=== PATIENT | male | born 1985 | race Caucasian/White ===

== ENCOUNTER 2017-10-24 09:51 | Emergency (ER) | payer OTHER ==
[2017-10-24] MEDS ORDERED: diphenhydrAMINE 50 MG/ML VIAL ONE (11:12)
[2017-10-24 11:13] LABS: #Eosinphils 0.1 thou/uL (0.0-0.7); #Monocytes 0.5 thou/uL (0.11-0.59); #Neutrophils 3.1 thou/uL (1.40-6.50); %Basophils 0.7 % (0.0-1.0); %Eosinophils 1.2 % (0.0-10.0); %Lymphocytes 35.2 % (21.0-51.0); %Monocytes 8.6 % (0.0-10.0); Hematocrit 46.2 % (42.0-52.0); Red Blood Cell (RBC) Count 4.92 mill/uL (4.70-6.10); White Blood Cell (WBC) Count 5.7 thou/uL (4.8-10.8)
[2017-10-24 11:34] LABS: ALT (SGPT) 24 U/L (8-55); AST (SGOT) 22 U/L (5-34); Alkaline Phosphatase 73 U/L (40-150); Anion Gap 12 mmol/L (10-20); BUN (Urea Nitrogen) 13 mg/dL (8.9-20.6); Bilirubin, Total 0.2 mg/dL (0.2-1.2); Calc. Creatinine Clearance 0 mL/min (70-130); Calcium 9.8 mg/dL (7.8-10.44); Carbon Dioxide 25 mmol/L (22-29); Chloride 103 mmol/L (98-107); Estimated GFR-MDRD Greater than 90; Globulin 3.4 g/dL (2.4-3.5); Protein, Total 7.9 g/dL (6.0-8.3)
--- NOTE | 2017-10-24 11:34 | RAD ---
PORTABLE UPRIGHT FRONTAL CHEST RADIOGRAPH: Date: 10/24/17 COMPARISON: 04/18/17. HISTORY: Syncope, trauma. FINDINGS: The lungs are clear. Heart and mediastinal contour unremarkable. Osseous structures are grossly unrem arkable. There is right lateral thoracic spine osteophyte formation. IMPRESSION: No acute findings. POS: [facility]
--- NOTE | 2017-10-24 11:51 | CT ---
BRAIN CT WITHOUT IV CONTRAST: HISTORY: A 32-year-old male with a syncopal episode. Headache. History of schizophrenia, hypertension, and t remors. COMPARISON: 04/18/2017 FINDINGS: There is no focal mass or midline shift. No intraaxial or extraaxial hemorrhage. Mild sinus mucosal disease. The mastoids are clear. IMPRESSION: No acute intracranial process. No mass or bleed. Mild stable mucosal changes. POS: [facility]
--- NOTE | 2017-10-24 12:15 | CT ---
CERVICAL SPINE CT SCAN WITHOUT IV CONTRAST: HISTORY: A 32-year-old male with a history of syncopal episode, fall, and headache, possible loss of conscious ness. FINDINGS: Multilevel disk-osteophytosis changes are noted including C3-C4 and C4-C5 with up to moderate central canal stenosis at C3-C4 and mild to moderate central canal stenosis at C4-C5. There are some facet arthrosis changes. No evidence for acute fracture or facet dislocation. 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 No fracture or facet dislocation. POS: [facility]
== END 2017-10-24 13:46 | disposition home or self-care (01) ==
LOC: ERS 09:51
DX: R25.1 Tremor, unspecified (principal); I10 Essential (primary) hypertension; F20.9 Schizophrenia, unspecified; Z79.899 Other long term (current) drug therapy; Z79.891 Long term (current) use of opiate analgesic; W22.8XXA Striking against or struck by other objects, initial encounter
CPT/HCPCS: 36415; 70450; 71010; 72125; 80053; 80156; 85025; 93005; 96361; 96374; J1200

== ENCOUNTER 2018-01-28 12:17 | Emergency (ER) | payer OTHER ==
[2018-01-28 13:07] LABS: #Basophils 0.1 thou/uL (0.0-0.2); #Eosinphils 0.1 thou/uL (0.0-0.7); #Lymphocytes 1.8 thou/uL (1.20-3.40); #Monocytes 0.4 thou/uL (0.11-0.59); #Neutrophils 2.8 thou/uL (1.40-6.50); %Basophils 1.2 % (0.0-1.0); %Eosinophils 1.6 % (0.0-10.0); %Monocytes 7.6 % (0.0-10.0); %Neutrophils 54.5 % (42.0-75.0); Hemoglobin 15.2 g/dL (14.0-18.0); Mean Corpuscular HGB CONC 33.8 g/dL (32.0-36.0); Mean Corpuscular Hemoglobin 30.9 pg (27.0-31.0); Mean Corpuscular Volume 91.5 fl (80.0-94.0); Mean Platelet Volume 5.8 fL (7.4-10.4); Platelet Count 221 thou/uL (130-400); RBC Distribution Width 11.7 % (11.5-14.5); Red Blood Cell (RBC) Count 4.92 mill/uL (4.70-6.10); White Blood Cell (WBC) Count 5.2 thou/uL (4.8-10.8)
[2018-01-28 13:44] LABS: ALT (SGPT) 21 U/L (8-55); AST (SGOT) 17 U/L (5-34); Acetaminophen Less than 6.0 mcg/mL (10.0-30.0); Albumin 4.7 g/dL (3.5-5.0); Alcohol Less than 10 mg/dL (Less than 10); Alkaline Phosphatase 89 U/L (40-150); Anion Gap 14 mmol/L (10-20); BUN (Urea Nitrogen) 12 mg/dL (8.9-20.6); Bilirubin, Total 0.3 mg/dL (0.2-1.2); Calc. Creatinine Clearance 0 mL/min (70-130); Calcium 9.7 mg/dL (7.8-10.44); Carbon Dioxide 21 mmol/L (22-29); Chloride 103 mmol/L (98-107); Estimated GFR-MDRD Greater than 90; Globulin 3.1 g/dL (2.4-3.5); Glucose 133 mg/dL (70-105); Potassium 3.8 mmol/L (3.5-5.1); Protein, Total 7.8 g/dL (6.0-8.3); Salicylate Less than 8.0 mg/dL (15.0-30.0); Sodium 134 mmol/L (136-145)
[2018-01-28 14:50] LABS: Bilirubin Negative (Negative); Blood, Urine Negative (Negative); Clarity CLOUDY (Clear); Glucose, Urine (Dipstick) Negative (Negative); Leukocyte Negative (Negative); Nitrite Negative (Negative); Protein, Urine (Dipstick) Negative (Neg-Trace); Specific Gravity, Urine 1.021 (1.002-1.036); Urobilinogen 0.2 mg/dL (0.2-1.0)
[2018-01-28 15:00] LABS: Medtox Reader # READER 1; Tricyclic Screen Detected (NotDetected)
[2018-01-28 15:01] LABS: Amphetamine Not Detected (NotDetected); Barbiturates Screen Not Detected (NotDetected); Benzodiazepine Screen Not Detected (NotDetected); Cocaine Metabolite Screen Not Detected (NotDetected); Medtox Control Line Valid? VALID (VALID); Methadone Not Detected (NotDetected); Methamphetamine Not Detected (NotDetected); Opiate Screen Not Detected (NotDetected); Oxycodone Screen Not Detected (NotDetected); Phencyclidine (PCP) Not Detected (NotDetected); THC/Cannabinoid Screen Not Detected (NotDetected)
[2018-01-28] MEDS ORDERED: Haloperidol Lactate 5 MG/ML VIAL ONE (16:34)
[2018-01-28] MEDS ORDERED: Lorazepam 2 MG/ML VIAL ONE (16:39)
== END 2018-01-29 03:46 ==
LOC: ERS 12:17
DX: F23 Brief psychotic disorder (principal); I10 Essential (primary) hypertension; Z79.899 Other long term (current) drug therapy
CPT/HCPCS: 36415; 80053; 80306; 80307; 81003; 84443; 85025; 96372; J1630; J2060

== ENCOUNTER 2018-05-01 20:36 | Emergency (ER) | payer OTHER ==
[2018-05-01 23:30] LABS: #Eosinphils 0.1 thou/uL (0.0-0.7); #Lymphocytes 2.1 thou/uL (1.20-3.40); #Monocytes 0.5 thou/uL (0.11-0.59); #Neutrophils 2.2 thou/uL (1.40-6.50); %Basophils 0.9 % (0.0-1.0); %Eosinophils 1.7 % (0.0-10.0); %Lymphocytes 42.9 % (21.0-51.0); %Monocytes 9.5 % (0.0-10.0); %Neutrophils 45.1 % (42.0-75.0); Hemoglobin 14.5 g/dL (14.0-18.0); Mean Corpuscular HGB CONC 35.3 g/dL (32.0-36.0); Mean Corpuscular Hemoglobin 31.7 pg (27.0-31.0); Mean Platelet Volume 5.9 fL (7.4-10.4); Platelet Count 248 thou/uL (130-400); RBC Distribution Width 11.5 % (11.5-14.5); Red Blood Cell (RBC) Count 4.58 mill/uL (4.70-6.10); White Blood Cell (WBC) Count 4.9 thou/uL (4.8-10.8)
[2018-05-01 23:52] LABS: Anion Gap 14 mmol/L (10-20); BUN (Urea Nitrogen) 14 mg/dL (8.9-20.6); Calc. Creatinine Clearance 0 mL/min (70-130); Calcium 9.3 mg/dL (7.8-10.44); Carbon Dioxide 23 mmol/L (22-29); Chloride 102 mmol/L (98-107); Estimated GFR-MDRD Greater than 90; Glucose 91 mg/dL (70-105); Potassium 4.2 mmol/L (3.5-5.1); Sodium 135 mmol/L (136-145)
[2018-05-01 23:57] LABS: CKMB 1.7 ng/mL (0-6.6); Troponin I 0.042 ng/mL (< 0.028)
== END 2018-05-02 00:38 | disposition home or self-care (01) ==
LOC: EEVIPCON 20:36 → ERS 20:36
DX: R07.9 Chest pain, unspecified (principal); I10 Essential (primary) hypertension; F20.9 Schizophrenia, unspecified; Z79.899 Other long term (current) drug therapy
CPT/HCPCS: 36415; 80048; 82553; 84484; 85025; 93005

== ENCOUNTER 2018-12-22 17:50 | Emergency (ER) | payer OTHER ==
--- NOTE | 2018-12-22 19:21 | RAD ---
RIGHT TIBIA AND FIBULA TWO VIEWS: HISTORY: Pain with fall. FINDINGS: AP and lateral views of the right tibia and fibula demonstrate no evidence of right tibial or fibula fractures or bony lesions. IMPRESSION: Unremarkable anterior-posterior and lateral views right tibia and fibula. POS: [facility]
== END 2018-12-22 19:38 | disposition home or self-care (01) ==
LOC: ERS 17:50
DX: M79.661 Pain in right lower leg (principal); I10 Essential (primary) hypertension; F20.9 Schizophrenia, unspecified; Z79.899 Other long term (current) drug therapy; W19.XXXA Unspecified fall, initial encounter